=== PATIENT | male | born 1960 | race Caucasian/White ===

== ENCOUNTER 2021-02-14 10:35 | Emergency (ER) | payer OTHER ==
[~2021-02-14] VITALS: Ht 165.1 cm; Wt 78.2 kg
[2021-02-14] MEDS ORDERED: CREO24CA PO (10:42)
--- NOTE | 2021-02-14 11:28 | REP ---
INDICATION: pain. COMPARISON: None. TECHNIQUE: Right {lower extremity duplex venous scanning is performed from the groin to the ankle level. FINDINGS: There is echogenic thrombus visible in the greater saphenous vein from the mid calf extending proximally to the saphenofemoral junction. The thrombus extends into the lumen of the common femoral vein for short segment, 1-2 cm. No other evidence of deep vein thrombosis is seen. The the right femoral and popliteal veins are anechoic and compressible. No evidence of deep vein thrombosis is seen in the visualized calf veins.. . Doppler interrogation of the contralateral common femoral vein shows normal symmetric respiratory phasicity. IMPRESSION: Positive study. 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 The greater saphenous vein thrombus extends into the common femoral vein 1-2 cm. No other evidence of deep vein thrombosis is seen.. <Electronically signed by Shai Alberts > 02/14/21 [id number]
[2021-02-14 12:23] LABS: BASO # 0.1 10^3/uL (0.0-0.2); BASO % 0.7 % (0.0-1.0); EOS # 0.2 10^3/uL (0.0-0.5); EOS % 3.4 % (0.0-3.0); HEMOGLOBIN 16.3 g/dl (13.5-17.5); LYMPH # 1.5 10^3/uL (1.5-5.0); LYMPH % 21.7 % (24.0-44.0); MEAN CORPUSCULAR HEMOGLOBIN 32.3 pg (27.0-33.0); MONO # 0.7 10^3/uL (0.0-0.8); MONO % 10.5 % (2.0-8.0); NEUTROPHILS # 4.5 10^3/uL (1.5-8.5); PLATELET COUNT, AUTOMATED 249 10^3/uL (150-450); RED BLOOD COUNT 5.05 10^6/uL (4.30-6.10); WHITE BLOOD COUNT 7.1 10^3/uL (4.0-10.0)
[2021-02-14 12:34] LABS: INR 0.86; PROTHROMBIN TIME 11.9 SECONDS (12.5-14.3)
[2021-02-14 12:35] LABS: PARTIAL THROMBOPLASTIN TIME 27.1 SECONDS (24.2-38.5)
[2021-02-14 12:43] LABS: BLOOD UREA NITROGEN 15 MG/DL (7-18); CALCIUM LEVEL 8.8 MG/DL (8.5-10.1); CARBON DIOXIDE LEVEL 30 MEQ/L (21-32); CHLORIDE LEVEL 104 MEQ/L (98-107); GLOMERULAR FILTRATION RATE > 60.0 (>56); GLUCOSE, FASTING 91 MG/DL (70-100); POTASSIUM SERUM 4.8 MEQ/L (3.5-5.1); SODIUM LEVEL 138 MEQ/L (136-145)
[2021-02-14] MEDS ORDERED: ELIQ5TAB PO (12:57)
[2021-02-14] MEDS ORDERED: APIXABAN 5 MG TAB (ELIQUIS) PO ONE (13:00)
[2021-02-14 13:27] VITALS: BP 154/81
--- NOTE | 2021-02-15 06:39 | ED PDOC ---
Post-Departure Follow-Up [facility] faxed formal report of right leg us for fu Moe Ramirez MD Feb 15, 2021 06:39
[2021-02-17 11:32] LABS: DRVV SCREEN 43.1 SEC
[2021-02-17 11:36] LABS: PTT LUPUS TYPE ANTICOAG SCREEN 1.1 (0-1.2)
== END 2021-02-14 13:28 | disposition home or self-care (01) ==
LOC: M ED 10:35
DX: I82.401 Acute embolism and thrombosis of unspecified deep veins of right lower extremity (principal); Z79.01 Long term (current) use of anticoagulants

== ENCOUNTER → 2021-02-26 | Outpatient (CLI) | payer OTHER ==
[~2021-02-26] MED LIST: CREO24CA PO; ELIQ5TAB PO
--- NOTE | 2021-02-26 12:18 | REP ---
INDICATION: PAIN IN LEFT SHOULDER. COMPARISON: None. TECHNIQUE: Three views of the left shoulder were performed. FINDINGS: The acromioclavicular and glenohumeral relationships are within normal limits. There is no acute fracture or destructive osseous lesion. IMPRESSION: Within normal limits <Electronically signed by Jeff Sagastume > 02/26/21 [id number]
== END ==
LOC: M ADAMS 10:11
PROVIDERS: ATTEND Family Medicine
DX: M25.512 Pain in left shoulder (principal)

== ENCOUNTER → 2021-06-29 | Outpatient (CLI) | payer OTHER ==
[~2021-06-29] MED LIST changes: +ELIQ2.5T PO
--- NOTE | 2021-06-29 13:42 | REP ---
INDICATION: RT LEG PAIN/SWELLING COMPARISON: 02/14/2021. TECHNIQUE: Real time compression and duplex Doppler interrogation of the right lower extremity deep venous system is performed, including the left common femoral vein.Compression of the right peroneal and posterior tibial veins is performed. FINDINGS: The right common femoral, superficial femoral and popliteal veins are fully compressible with transducer pressure and demonstrate normal spontaneous and phasic flow, without evidence of deep venous thrombosis.The left common femoral vein demonstrates no thrombus.The visualized right peroneal and posterior tibial veins demonstrate no thrombus. IMPRESSION: No evidence of deep venous thrombosis of the right lower extremity femoral popliteal venous system.The visualized right peroneal and posterior tibial veins demonstrate no thrombus. <Electronically signed by Fabrice Acosta > 06/29/21 [id number]
== END ==
LOC: M RAD 12:26
PROVIDERS: ATTEND Internal Medicine Medical Oncology
DX: M79.661 Pain in right lower leg (principal); R22.41 Localized swelling, mass and lump, right lower limb

== ENCOUNTER → 2024-08-21 | Outpatient (REF) | payer OTHER ==
[2024-08-21 15:01] LABS: BASO # 0.1 10^3/uL (0.0-0.2); EOS # 0.2 10^3/uL (0.0-0.5); EOS % 4.6 % (0.0-3.0); HEMATOCRIT 47.8 % (42.0-52.0); HEMOGLOBIN 16.1 g/dl (13.5-17.5); LYMPH # 1.8 10^3/uL (1.5-5.0); LYMPH % 36.7 % (24.0-44.0); MEAN CORPUSCULAR HEMOGLOBIN 32.4 pg (27.0-33.0); MEAN CORPUSCULAR HGB CONC 33.7 g/dl (32.0-36.5); MEAN CORPUSCULAR VOLUME 96.2 fl (80.0-96.0); MONO # 0.5 10^3/uL (0.0-0.8); MONO % 10.9 % (2.0-8.0); NEUTROPHILS # 2.2 10^3/uL (1.5-8.5); NEUTROPHILS % 46.4 % (36.0-66.0); PLATELET COUNT, AUTOMATED 283 10^3/uL (150-450); RED BLOOD COUNT 4.97 10^6/uL (4.30-6.10); WHITE BLOOD COUNT 4.8 10^3/uL (4.0-10.0)
[2024-08-21 15:05] LABS: ALBUMIN 3.8 G/DL (3.2-5.2); ALKALINE PHOSPHATASE 60 U/L (40-129); ALT/SGPT 29 U/L (7.0-40); AST/SGOT 26 U/L (<34); BILIRUBIN,TOTAL 1.1 MG/DL (0.3-1.2); BLOOD UREA NITROGEN 14 MG/DL (9-23); CARBON DIOXIDE LEVEL 29 MMOL/L (20-31); CHLORIDE LEVEL 104 MMOL/L (98-107); CHOLESTEROL LEVEL 208 MG/DL (<200); CHOLESTEROL RISK RATIO 3.85 (<5); CREATININE FOR GFR 1.05 MG/DL (0.70-1.30); GLOMERULAR FILTRATION RATE > 60.0 (>49); GLUCOSE, FASTING 98 MG/DL (74-106); LDL CHOLESTEROL 132.6 MG/DL (<100); POTASSIUM SERUM 4.8 MMOL/L (3.5-5.1); SODIUM LEVEL 139 MMOL/L (136-145); TRIGLYCERIDES LEVEL 107 MG/DL (<150)
[2024-08-21 15:07] LABS: THYROID STIMULATING HORMONE 2.295 uIU/ML (0.55-4.78)
== END ==
LOC: M SFHCADAM 08:44
PROVIDERS: ATTEND Family Medicine
DX: Z00.00 Encounter for general adult medical examination without abnormal findings (principal)

== ENCOUNTER → 2024-09-14 | Outpatient (CLI) | payer OTHER | LOC: M SOG 07:52 | PROVIDERS: ATTEND Physician Assistant | DX: M25.561 Pain in right knee (principal); M17.11 Unilateral primary osteoarthritis, right knee ==